=== PATIENT | male | born 1990 | race Caucasian/White ===

== ENCOUNTER 2019-10-26 12:11 | Emergency (ER) | payer OTHER ==
--- NOTE | 2019-10-26 12:41 | EDM.PDOC ---
ED HPI GENERAL MEDICAL PROBLEM - General Chief Complaint: Lower Extremity Injury/Pain Stated Complaint: RT ANKLE INJURY Time Seen by Provider: 10/26/19 12:36 Source of Information: Reports: Patient History Limitations: Reports: No Limitations - History of Present Illness INITIAL COMMENTS - FREE TEXT/NARRATIVE: 28-year-old male presents to the ED with an acute injury to his right ankle. This occurred about 1500 hrs. while in the workplace. He yesterday when he slipped on ice and suffered an eversion injury to the ankle. He states he did put him down to the ground. He denies hurting himself and was able to kind of catch himself on a vehicle on the way to the ground. Since time of injury he's been unable to weight-bear and much worse this morning. He does come with his own crutches. Reports previous sprain to the ankle but no major fractures. Onset: Sudden Onset Date: 10/25/19 Onset Time: 15:00 Duration: Hour(s):, Getting Worse Location: Reports: Lower Extremity, Right (Eversion injury right ankle yesterday while slipping on the ice.) Quality: Reports: Ache, Throbbing Severity: Moderate Improves with: Reports: Rest Worsens with: Reports: Other (Severe pain with trying to put any weight on the foot) Associated Symptoms: Reports: No Other Symptoms Treatments LEGAL CASHIER: Reports: Acetaminophen, NSAIDS (Motrin) Right Ankle Pain Score (Numeric/FACES): 8 - Related Data Allergies Allergy/AdvReac Type Severity Reaction Status Date / Time No Known Allergies Allergy Verified 10/26/19 12:31 Home Meds: Home Meds . [No Known Home Meds] 10/26/19 [History] Past Medical History - Past Health History Medical/Surgical History: Denies Medical/Surgical History Social & Family History - Tobacco Use Smoking Status *Q: Unknown Ever Smoked - Living Situation & Occupation Occupation: Employed Review of Systems - Review of Systems Review Of Systems: See Below Constitutional: Denies: Chills, Diaphoresis, Fever, Weakness Eyes: Reports: No Symptoms Ears: Reports: No Symptoms Nose: Reports: No Symptoms Mouth/Throat: Reports: No Symptoms Respiratory: Reports: No Symptoms Cardiovascular: Reports: No Symptoms GI/Abdominal: Reports: No Symptoms Genitourinary: Reports: No Symptoms Musculoskeletal: Reports: Other Skin: Reports: No Symptoms Neurological: Reports: No Symptoms Psychiatric: Reports: No Symptoms ED EXAM, GENERAL - Physical Exam Exam: See Below Exam Limited By: No Limitations General Appearance: Alert, WD/WN, No Apparent Distress, Other (Vital signs are all normal.) Extremities: Other (Examination was limited to his right lower extremity. He has no pain on firm palpable palpation over the fibular head. Mid shaft tib-fib did not give him ankle pain. He does have swelling both medial and lateral aspects of the right ankle. The deltoid ligament appears to be intact. Achilles tendon is slightly tender to palpation. Pain to dorsiflex and plantarflex the foot. From compression of the metatarsals in particular the fifth metatarsal head did not give him any pain.) Psychiatric: Normal Affect, Normal Mood Skin Exam: Warm, Dry, Intact, Normal Color, No Rash Course - Vital Signs Last Recorded V/S: Last Vital Signs Temp 36.2 C 10/26/19 12:29 Pulse 82 10/26/19 12:29 Resp 18 10/26/19 12:29 BP 136/90 10/26/19 12:29 Pulse Ox 100 10/26/19 12:29 - Orders/Labs/Meds Orders: Active Orders 24 hr Category Date Time Status Ankle Min 3V Rt [CR] Stat Exams 10/26/19 12:37 Taken Durable Medical Equipment for Discharge [DME for Oth 10/26/19 13:12 Ordered Discharge] [COMM] Stat - Radiology Interpretation Free Text/Narrative:: 28-year-old male presents the ED with an acute injury to his right ankle having eburnated on the ice yesterday. He did cause him to fall to the ground. He denies hurting his head neck back chest wall work upper extremities. He had immediate pain in the ankle has been unable to weight-bear since that time. It is worse this morning. He did manage to get a little sleep last night examination reveals medial ligaments are intact. Lateral ligaments are very tender to touch. Tenderness at the base of the Achilles tendon. Plan 3 view x- ray of the right ankle to be obtained. - Re-Assessments/Exams Free Text/Narrative Re-Assessment/Exam: 10/26/19 13:07 x-rays of the right ankle 3 view are negative for any fractures and the mortise view is normal. Patient will be placed an Hector wrap and be nonweightbearing crutch walking. Note given to excuse her from work place for the next 10 days. 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 600 mg every 6 hours for pain relief. Elevation of the Rt leg and ice pack today one half hour to every 4 hours. Just use of Hector wrap for the next 10 days. Departure - Departure Time of Disposition: 13:08 Disposition: Home, Self-Care 01 Condition: Fair Clinical Impression: Moderate ankle sprain Qualifiers: Encounter type: initial encounter Laterality: right Qualified Code(s): S93.401A - Sprain of unspecified ligament of right ankle, initial encounter - Discharge Information *PRESCRIPTION DRUG MONITORING PROGRAM REVIEWED*: Not Applicable *COPY OF PRESCRIPTION DRUG MONITORING REPORT IN PATIENT NO: Not Applicable Instructions: Crutch Use, Adult, [id number], Ankle Sprain, Phase I Rehab- SportsMed, Ankle Sprain, [id number], Elastic Bandage and RICE Referrals: PCP,None [Primary Care Provider] - Forms: ED Department Discharge, ED Return to Work/School Form Additional Instructions: Evaluation the emergency room today in regards to acute injury to the right ankle in the workplace yesterday after slipping on the ice. It is believed that you suffered an eversion injury to the ankle with pain on both the medial and lateral aspect of the ankles on clinical exam. The swelling is worse on the lateral aspect of the ankle. Unable to weight-bear. X-rays were done and did not reveal any broken bones. Ankle ligaments are stable on examination after x- rays were completed. Kayla Hector wrap on during the day and off at night. Elevate and ice pack to the area one half hour out of every 4 hours today. Motrin 600 mg every 6 hours needed for pain relief. Off work for the next 7-10 days in a till able to walk up a flight of stairs with minimal amount of pain. Since climbing ladders as part of your job this would be difficult and certainly would slow down ability of the ankle ligaments to heal. Expect 10-14 days before the ankle pain is pretty well-healed. Continue to wear a well laced up boot to support the ankle for the rest of the winter months since it is weak for about 6 months. Sepsis Event Note - Evaluation Sepsis Screening Result: No Definite Risk - Focused Exam Vital Signs: Vital Signs Temp Pulse Resp BP Pulse Ox 10/26/19 12:29 36.2 C 82 18 136/90 100 Date Exam was Performed: 10/26/19 Time Exam was Performed: 13:13 - My Orders Last 24 Hours: My Active Orders 10/26/19 12:37 Ankle Min 3V Rt [CR] Stat 10/26/19 13:12 Durable Medical Equipment for Discharge [DME for Discharge] [COMM] Stat - Assessment/Plan Last 24 Hours: My Active Orders 10/26/19 12:37 Ankle Min 3V Rt [CR] Stat 10/26/19 13:12 Durable Medical Equipment for Discharge [DME for Discharge] [COMM] Stat
--- NOTE | 2019-10-28 07:24 | CR ---
Right ankle: Four views of the right ankle were obtained. Comparison: No previous right ankle study. Ankle mortise is symmetric. No fracture, dislocation or other bony abnormality is seen. Impression: 1. No abnormality is appreciated on right ankle exam. Diagnostic code #1 This report was dictated in [place] Standard Time
== END 2019-10-26 13:35 | disposition home or self-care (01) ==
LOC: JD.ED 12:11
DX: S93.401A Sprain of unspecified ligament of right ankle, initial encounter (principal); X58.XXXA Exposure to other specified factors, initial encounter
CPT/HCPCS: 73610-26-RT; 73610-RT; 99283-25